=== PATIENT | female | born 1990 | race Caucasian/White ===

== ENCOUNTER 2023-07-19 21:32 | Outpatient (CLI) | payer OTHER, SELFPAY ==
[2023-07-19] VITALS (21 sets, daily range): BP systolic 135; BP diastolic 76; PULSE 66–90; TEMP 36.8; O2SAT 97–99
--- NOTE | 2023-07-19 22:20 | CRLHL7_ITS ---
For Patients: As a result of the Century Cures Act, medical imaging exams and procedure reports are released immediately into your electronic medical record. You may view this report before your referring provider. If you have questions, please contact your health care provider. INDICATION: Bleeding at 30 weeks, cervical length. COMPARISON: None available. TECHNIQUE: Ultrasound OB pelvis with real time laruent scale imaging and color Doppler analysis. FINDINGS: Sonographic imaging demonstrates a single living intrauterine gestation. The fetus has a regular cardiac rate of 155 beats per minute. The fetus has a transverse orientation with the head to the maternal right. Amniotic fluid volume appears normal with deepest pocket measuring 4.1 cm. The placenta lies anteriorly without evidence of placenta previa or abruption. The placental edge is located 4.4 cm from the internal cervical os. The cervix is closed and measures 3.8 cm in length. No funneling of the internal cervical os. IMPRESSION: 1. Single living intrauterine gestation in transverse position with heart rate 155 beats per minute. 2. Anterior placenta without evidence of previa. 3. The cervix is closed and measures 3.8 cm in length. Dictated by Brittney Bearden MD @ 07/19/2023 11:51:03 PM (Electronically Signed)
--- NOTE | 2023-07-19 23:42 | PC.OBNST ---
NST Note NST Note Start: 07/19/23 21:48 Freq: ONCE Status: Active Protocol: Document 07/19/23 23:40 DEBBY (Rec: 07/19/23 23:42 [id number] [id number]) NST Note 2 Para (# of births) 0 EDC 09/27/23 Gestational Age In Weeks & Days 30 Weeks & 0 Days Patient Presented with Complaint(s) of Vaginal bleeding Reactive Yes Appropriate for Gestational Age Yes RN Sun Sierra RN Date 07/19/23 Reactive Yes Appropriate for Gestational Age Yes AUSTIN Pettit RN Date 07/19/23 OB NST charge Yes Complete NST Note via Write Note Yes The provider's electronic signature indicates the NST is reactive/appropriate for gestational age. *Note to provider: If an addendum is required, open the patient's chart and click on the note under the Nurse/Allied Health tab.
== END 2023-07-19 23:37 | disposition home or self-care (01) ==
LOC: OB OUT 21:32 → OB 21:33
PROVIDERS: PCP Physician Assistant; Visit Provider Family Medicine
DX: O46.93 Antepartum hemorrhage, unspecified, third trimester (principal); Z3A.30 30 weeks gestation of pregnancy
CPT/HCPCS: 59025; 76815; G0463

== ENCOUNTER 2023-09-10 13:44 | Inpatient (IN) | payer OTHER, SELFPAY ==
[2023-09-10] VITALS (18 sets, daily range): BP systolic 122–156; BP diastolic 67–97; PULSE 55–103; RESP 18; TEMP 36.6–37; O2SAT 97–99; BMI 34.3
[2023-09-10 15:09] LABS: Alanine Aminotransferase* 11 U/L (4-35); Aspartate Amino Transferase* 16 U/L (12-35); Blood Urea Nitrogen* 8 mg/dL (5-24); Creatinine* 0.6 mg/dL (0.5-1.5); Estimated Glomerular Filt Rate 122 ml/min
[2023-09-10 15:20] LABS: Basophils Absolute Auto 0.03 K/uL (0.00-0.30); Basophils Percent Auto 0.3 % (0.0-3.0); Eosinophils Absolute Auto 0.01 K/uL (0.00-0.50); Eosinophils Percent Auto 0.1 % (0.0-7.0); Hematocrit 34.4 % (33.0-51.0); Hemoglobin* 11.3 gm/dL (12.0-16.0); Immature Granulocytes Abs Auto 0.05 K/uL (0.00-0.30); Immature Granulocytes Pct Auto 0.5 %; Lymphocytes Absolute Auto 2.23 K/uL (0.90-2.90); Lymphocytes Percent Auto 21.7 % (20-44); Mean Corpuscular HGB Conc 33 gm/dL (32-36); Mean Corpuscular Hemoglobin 28 pg (26-34); Mean Corpuscular Volume 85 fL (80-100); Monocytes Percent Auto 5.9 % (0.0-11.0); Neutrophils Absolute Auto 7.33 K/uL (1.7-7.0); Neutrophils Percent Auto 71.5 % (42.0-72.0); Platelet Count* 166 K/uL (140-440); RDW Coefficient of Variation % 14.4 % (11.5-15.5); Red Blood Count 4.06 m/uL (4.00-5.20); White Blood Count* 10.26 K/uL (4.50-11.00)
[2023-09-10 15:22] LABS: Slide Review Reflex No
[2023-09-10] MEDS: miSOPROStoL 25 MCG/0.25 TABLET VAGINAL (15:37)
[2023-09-10 16:47] LABS: Total Protein Urine 11 mg/dL
[2023-09-10 16:48] LABS: Protein Creatinine Ratio Urine 0.26 (0-0.19)
--- NOTE | 2023-09-10 18:46 | PM.OBHPLI ---
OB - H&P: HPI Labor/Induction History of Present Illness Date Seen: 09/10/23 Chief Complaint: The patient is a 33 year old 2 para 0 at 37+4 weeks gestation by 7 week US, who presents with IOL for gestational HTN. Chief complaint: Gestational Hypertension IOL Indications for induction: induced hypertension Narrative: Carrie Pool is a 33 year old at 37+4 weeks gestation by 7 week US who has had elevated BP readings both in clinic and at home over the last 2 weeks. She had a headache today, but relieved with tylenol. No increased swelling today. No abdominal pain or vision changes. Preeclampsia labs have all been normal. She had a reassuring BPP of 8/8 on 09/07 History of Present Dating criteria: based on 1st trimester US only care: good care Ultrasounds: normal 1st trimester US and normal mid trimester US complications: gestational hypertension Medical complications: none Labs Blood type: A (-) negative Rubella: immune RPR/VDLR: nonreactive GBS status: negative HBsAG: negative Review of Systems Status of ROS: Reports: 10 or more systems reviewed and unremarkable except as noted in History and below Meds Home Medications and Allergies Home Medications ?Medication ?Instructions ?Recorded ?Confirmed ?Type Fiber 07/19/23 History vitamin 07/19/23 History nettle tea 07/19/23 History red raspberry leaf tea 07/19/23 History Allergies Allergy/AdvReac Type Severity Reaction Status Date / Time No Known Drug Allergies Allergy Verified 12/27/21 13:05 OB - H&P: Exam Physical Exam: Vital signs: Temp Pulse BP Pulse Ox 97.8 F 67 134/92 H 97 09/10/23 17:49 09/10/23 17:45 09/10/23 17:45 09/10/23 17:45 Constitutional: Constitutional: no acute distress Routine HEENT Exam: Head: Present atraumatic Eye: Present PERRL ENT: Present mucous membranes moist Routine Neck Exam: Neck: Present full ROM Routine Respiratory Exam: Respiratory: Present CTA bilaterally Routine Cardiovascular Exam: Cardiovascular: RRR Detailed Labor and Delivery Exam: Dilation (cm): 3 Effacement (%): 70 Cervix position: mid Consistency: soft Cervical ripeness score: 9 Fetus (Single): Station: -1 Amniotic Membrane Status: intact Heart Rate Baseline: 150 Monitor Accelerations: Present Monitor Decelerations: None [facility] Variability: Moderate (6-25) Routine Back/Spine/Pelvis Exam: Back/Spine: full ROM Routine Skin Exam: Present intact Routine Neurological Exam: Present alert, oriented X3 and CN II-XII intact Routine Psychiatric Exam: Present normal affect and normal thought process OB - Results Labs Labs: Short CBC 09/10/23 Range/Units 14:40 WBC 10.26 (4.50-11.00) K/uL Hgb 11.3 L (12.0-16.0) gm/dL Hct 34.4 (33.0-51.0) % Plt Count 166 (140-440) K/uL BMP 09/10/23 14:40 BUN 8 Creatinine 0.6 Liver Function 09/10/23 Range/Units 14:40 AST 16 (12-35) U/L ALT 11 (4-35) U/L OB - Problem Based A/P Additional Plan (1) Term : Status: Acute (2) Gestational HTN: Status: Acute Plan Preeclampsia labs are negative/normal, blood pressures elevated, but below threshold for treatment. Will plan IOL, has had 1 dose cytotec and cervix is now favorable, so recommend going to pitocin. Patient desires water and we will accommodate as long as BP is under severe range and no preeclampsia signs/symptoms. Delivery/Labor/Induction Plan Plan: induction Induction method: per pitocin protocol
[2023-09-10] MEDS: MORPHINE 10 MG/ML inj IM (21:38)
[2023-09-10] MEDS: hydrOXYzine pamoate 25 MG CAPSULE 100 MG PO (21:38)
[2023-09-10] MEDS: OXYTOCIN 30 unit/500 ML in NS 30 UNIT/500 ML BAG IVPB (21:49)
[2023-09-10] MEDS: LACTATED RINGERS 1000 ML 1,000 ML 124 ML IV (22:17)
[2023-09-11] VITALS (65 sets, daily range): BP systolic 120–167; BP diastolic 67–100; PULSE 55–114; RESP 16–20; TEMP 36.4–37.3; O2SAT 86–100
--- NOTE | 2023-09-11 06:51 | P.OBPN_ITS ---
Subjective Date Seen: 09/11/23 Narrative: Carrie is a at 37+5 admitted yesterday afternoon for IOL for gestational HTN. She had 1 dose of cytotec and because of a monzon score of 9, was started on pitocin. She had SROM of clear fluid at 0340 this morning and rapidly dilated to 8.5 cm. She is now in the birthing tub. Due to difficulty getting an adequate tracing, pitocin has been turned off. She continues to contract every 3-4 minutes and is using nitrous for analgesia. Blood pressures remain intermitt ently high, but below threshold for treatment. Objective Vital Signs: Last Vital Signs Temp 97.6 F 09/11/23 05:19 Pulse 93 09/11/23 05:48 Resp 18 09/11/23 05:19 BP 139/100 H 09/11/23 05:48 Pulse Ox 97 09/10/23 17:45 Pelvic Exam Dilation (cm): 8.5 Effacement (%): 90 Station: +2 Contractions Monitor mode: External Contraction Frequency: 3-4 Contraction pattern: Regular Contraction intensity: Strong/Firm Assessment Assessment: active labor Station: +2 Status: Category l Heart Rate Baseline: 150 Correction Variability: Moderate (6-25) Monitor Accelerations: Present Monitor Decelerations: None Plan Plan: continue expectant management. Anticipate .
[2023-09-11] MEDS: fentaNYL 100 MCG/2 ML inj IVP ×2 (07:52→10:37)
--- NOTE | 2023-09-11 08:19 | PM.OBPNL ---
Subjective Date Seen: 09/11/23 Narrative: Carrie was feeling urge to push at peak of contractions, however cervical check showed she is only 6 cm. Due to increased intensity of contractions a dose of IV fentanyl given. Contractions have spaced out since pitocin turned off around 6 am. Objective Vital Signs: Last Vital Signs Temp 99.1 F 09/11/23 06:44 Pulse 67 09/11/23 08:13 Resp 18 09/11/23 06:44 BP 146/68 H 09/11/23 08:13 Pulse Ox 94 09/11/23 08:18 Pelvic Exam Dilation (cm): 6 Effacement (%): 100 Station: -1 Contractions Monitor mode: External Contraction pattern: Regular Contraction intensity: Strong/Firm Assessment Assessment: active labor Station: -1 Status: Category l Heart Rate Baseline: 150 [employer] Variability: Moderate (6-25) Monitor Accelerations: Absent Monitor Decelerations: None Plan Plan: If patient is not making adequate progress, will restart pitocin. Patient reminded of pain management options. anticipate .
[2023-09-11] MEDS: LACTATED RINGERS 1000 ML 1,000 ML 125 ML IV (09:31)
--- NOTE | 2023-09-11 11:30 | P.OBPN_ITS ---
Subjective Date Seen: 09/11/23 Narrative: Patient is now more uncomfortable with more frequent and stronger contractions as pitocin is increased. Has been able to manage pain so far with IV fentanyl and nitrous. Objective Vital Signs: Last Vital Signs Temp 98.2 F 09/11/23 11:17 Pulse 71 09/11/23 11:10 Resp 18 09/11/23 06:44 BP 136/81 09/11/23 11:10 Pulse Ox 97 09/11/23 10:13 Pelvic Exam Dilation (cm): 7 Effacement (%): 100 Station: 0 Contractions Monitor mode: External Contraction Frequency: 2-3 Contraction pattern: Regular Contraction intensity: Strong/Firm Pitocin Rate (mU/min): 6 Assessment Assessment: active labor Station: -1 Status: Category l Heart Rate Baseline: 150 [employer] Variability: Moderate (6-25) Monitor Accelerations: Absent Monitor Decelerations: None Plan Plan: Continue pitocin per protocol. Anticipate .
[2023-09-11] MEDS: LIDOCAINE 1 % PF 30 ML INJECTION (13:45)
[2023-09-11] MEDS: IBUPROFEN 600 MG TABLET PO ×2 (14:10→23:24)
--- NOTE | 2023-09-11 14:12 | W.PM.VAGDEL1 ---
Procedure Delivery date: 09/11/23 Procedure Done: Global Events: Gestational Hypertension Intrapartal Events: None Delivery monitor: external FHT and internal uterine Route of delivery: Laceration description: Vaginal - 2nd Degree Delivery repair: Vicryl Estimated blood loss (mL): 225 Anesthesia type: None Disposition: floor Narrative: The patient is a 33 year-old admitted on 09/10/2023 at 37 Weeks, 4 Days gestation for IOL for gestaional HTN.? Cervical exam on admission was 3 cm/50 % effaced/-2 station with membranes intact in vertex presentation.? Contractions were absent.? heart rate demonstrated baseline 150 bpm with moderate variability, + accelerations, - decelerations; a category 1 tracing.? SROM occurred at 0340 with clear fluid. ? Labor Analgesia:? fentanyl and nitrous ? Pitocin:? yes ? Labor onset:? 0915 ? Complete:? 1243 ? Pushing:? 1243 ? heart tones during second stage were category 2. ? Patient entered the tub for delivery at 1243. At 1321 a viable female infant delivered in vertex OA presentation over intact perineum via spontaneous vaginal delivery.? Infant was placed on maternal abdomen.? Cord was clamped and cut after a 30-60 second delay.? Nose and mouth were bulb suctioned.? Infant weight pending.? 7 at 1 minute and 9 at 5 minutes.? Shoulder dystocia: no.? Nuchal cord: yes x1. ? Placenta delivered spontaneously and complete at 1331 with a 3 vessel cord. ? Mother and were stable after delivery. ? Lacerations:? 2nd degree with bilateral labial extension, repaired with 3-0 vicryl suture. ? Blood loss: 225 mL. Blood loss measurement type: EBL ? Sponge and needles counts are correct.
[2023-09-11] MEDS: OXYTOCIN 30 unit/500 ML in NS 30 UNIT/500 ML BAG 300 UNIT IVPB (14:15)
[2023-09-11] MEDS: ACETAMINOPHEN 500 MG TABLET 1000 MG PO (17:09)
[2023-09-12 01:03] VITALS: BP 134/89; PULSE 93; RESP 18; TEMP 36.6
[2023-09-12 03:36] VITALS: BP 133/96; PULSE 93; RESP 18; TEMP 37
[2023-09-12] MEDS: ACETAMINOPHEN 500 MG TABLET 1000 MG PO ×2 (03:36→20:05)
[2023-09-12 06:29] LABS: Hemoglobin* 9.1 gm/dL (12.0-16.0)
[2023-09-12 07:43] VITALS: BP 128/88; PULSE 74; RESP 19; TEMP 36.4; O2SAT 96
[2023-09-12] MEDS: IBUPROFEN 600 MG TABLET PO ×3 (07:45→21:54)
[2023-09-12] MEDS: DOCUSATE SODIUM 100 MG CAPSULE PO (07:46)
--- NOTE | 2023-09-12 07:52 | PM.OBPNVD1 ---
OB - PN:Subj Subjective Date Seen: 09/12/23 Narrative: Patient seen today on PP day 1. Doing well. Pain under control with ibuprofen. Lochia decreasing. Ambulating. Tolerating diet. Normal urination. going well. Baby doing well. Blood pressure overnight in 150s with pain, returned to 120-130s. Denies headache or RUQ pain. Swelling has resolved. OB - PN: Obj Exam Physical Exam: Vital signs: Temp Pulse Resp BP Pulse Ox O2 Del Method 97.6 F 74 19 128/88 96 Room Air 09/12/23 07:43 09/12/23 07:43 09/12/23 07:43 09/12/23 07:43 09/12/23 07:43 09/12/23 07:43 Narrative: Gen: NAD CV: RRR, normal S1,S2, no murmurs Resp: normal rate and effort, clear to auscultation Ext: Warm, dry, no edema b/l. Calves non-tender to palpation. Mood: Appropriate OB - PN: Obj Data Labs Labs: Laboratory Results - last 24 hr 09/10/23 09/12/23 14:40 06:22 Hgb 9.1 L Antibody Identification Anti-D OB - PN: A/P Delivery Assessment and Plan (1) Term : Status: Inactive (2) Gestational HTN: Problem details: Blood pressure 120-140s, no pre-E symptoms, if blood pressures remain elevated recommend repeat pre-E labs Status: Acute Plan Comments: PPD#1 s/p uncomplicated , doing well. Plan: -- Continue current cares. -- Encourage ambulation. -- Take Vitamins while . -- Iron sulfate due to anemia (since Hgb < 10) -- Colace for constipation prophylaxis. -- Anticipate discharge to home tomorrow.
[2023-09-12 12:41] VITALS: BP 129/81; PULSE 70; RESP 19; TEMP 36.7; O2SAT 97
[2023-09-12 15:10] LABS: Rapid Plasma Reagin (RPR) Non Reactive (Non Reactive)
[2023-09-12 15:46] VITALS: BP 132/89; PULSE 70; RESP 17; TEMP 36.4; O2SAT 98
[2023-09-12 20:00] VITALS: BP 124/73; PULSE 75; RESP 18; TEMP 36.8; O2SAT 96
[2023-09-13] VITALS (7 sets, daily range): BP systolic 124–151; BP diastolic 75–91; PULSE 75–83; RESP 16–18; TEMP 36.6–36.8; O2SAT 96–97
[2023-09-13 01:48] LABS: Hematocrit 27.7 % (33.0-51.0); Hemoglobin* 9.1 gm/dL (12.0-16.0); Mean Corpuscular HGB Conc 33 gm/dL (32-36); Mean Corpuscular Hemoglobin 28 pg (26-34); Mean Corpuscular Volume 87 fL (80-100); Platelet Count* 138 K/uL (140-440); White Blood Count* 12.41 K/uL (4.50-11.00)
[2023-09-13 01:56] LABS: Slide Review Reflex No
[2023-09-13 02:03] LABS: Creatinine* 0.6 mg/dL (0.5-1.5); Estimated Glomerular Filt Rate 122 ml/min
[2023-09-13 02:04] LABS: Alanine Aminotransferase* 13 U/L (4-35); Aspartate Amino Transferase* 26 U/L (12-35); Blood Urea Nitrogen* 8 mg/dL (5-24)
[2023-09-13] MEDS: IBUPROFEN 600 MG TABLET PO (03:56)
[2023-09-13] MEDS: NIFEdipine 30 MG TAB.ER.24 PO ×2 (05:15→11:30)
--- NOTE | 2023-09-13 08:20 | PM.OBDSVD1 ---
DS: Providers Provider Date Seen: 09/13/23 Date of admission: 09/10/23 13:44 Primary care physician: Arielle Porras PA-C Admitting Clinician: Caira Gaona MD Attending Physician on discharge: Ciara Gaona MD DS: Diagnosis Discharge Diagnosis (1) Gestational HTN: Status: Acute Problem details: H/o gHTN, no pre-E, PP BPs 120-150s, started on 30mg nifedipine. Repeat labs nl (2) Vaginal delivery: Status: Acute Exam Narrative: Exam Narrative: Gen: No acute distress CV: Regular rate and rhythm, normal S1,S2, no murmurs Resp: Normal rate and effort, clear to auscultation bilaterally Abd: Soft, uterus firm and nontender at umbilicus Ext: Warm, dry, 2+ pedal pulses, no edema bilaterally. Calves non-tender to palpation. Const: Vital Signs, click to edit/add: Vital Signs - 24 hr 09/12/23 12:41 09/12/23 15:46 09/12/23 20:00 Temperature 98.0 F 97.5 F L 98.2 F Pulse Rate [Right Pulse Oximeter] 70 70 75 Respiratory Rate 19 17 18 Blood Pressure [Le ft Arm] 129/81 132/89 124/73 Pulse Oximetry 97 98 96 Oxygen Delivery Me thod Room Air Room Air Room Air 09/13/23 01:00 09/13/23 03:54 09/13/23 04:30 Temperature 98.2 F 97.8 F Pulse Rate [Right Pulse Oximeter] 75 75 Respiratory Rate 18 18 Blood Pressure [Le ft Arm] 151/88 H 145/80 H Pulse Oximetry 96 96 Oxygen Delivery Me thod Room Air Room Air 09/13/23 05:00 09/13/23 06:57 Temperature 97.8 F Pulse Rate [Right Pulse Oximeter] 75 75 Respiratory Rate 18 Blood Pressure [Le ft Arm] 148/91 H 124/75 Pulse Oximetry 96 Oxygen Delivery Me thod Room Air OB - DS: Summary Hospital Course Hospital Course: The patient is a 33 year old G 2 P 1 at 37.5 weeks gestation that was admitted to the Center on 09/10/23 for IOL for gestational hypertension. She had an uncomplicated vaginal delivery, waterbirth. She delivered a viable female infant. She is breast feeding. the patient has done well. Blood pressures spiked at 150s systolic, started on oral nifedipine 30mg once daily. She did have anemia of 9.1 and should continue iron supplementation at this time. Peripartum Data Infant delivery method: Vaginal Laceration description: Perineal - 2nd Degree [place] Gender: Female Status at Discharge Functional status at discharge: independent ambulation Overall status at discharge: patient is progressing back to baseline Time Spent with Patient Time attestation: Total time spent providing and/or coordinating discharge services: Discharge Plan Discharge Disposition: Home, Self-Care Date of Admission: 09/10/23 13:44 Primary Care Provider: Arielle Porras Condition: Stable Anticipated Discharge Date/Time: 09/13/23 08:25 Discharge Medications: New nifedipine 30 mg Tablet Extended Release 24hr 30 mg PO DAILY Qty: 30 0RF Continued red raspberry leaf tea nettle tea vitamin Discontinued Fiber Discharge Orders: Discharge Order (Routine); Ordered 09/13/23 Ordered By: Joelle Marquis Patient Education: OB High Blood Pressure DC, OB [place] Care, OB Vaginal/Breast Feeding Additional Instructions: Follow-up with Dr Gaona early next week (09/16 at 10:05AM) for blood pressure recheck. Check blood pressures 1-2x daily. If blood pressure remains above 130/80 at home, please contact clinic as may need a dose increase of the nifedipine. You should monitor for headache, vision changes, right upper abdominal pain and arm/leg swelling as you can still develop preeclampsia. If you develop these symptoms, you should call center as you may need to be readmitted to the hospital. Activity Level: Activity as Tolerated Discharge Diet: Regular Follow Up Appointments: Arielle Porras PA-C [Primary Care Provider] - Forms: Vendor Registry Info Instructions DS:Data Additional Comments Additional comments: - GHtn: continue nifedipine 30mg once daily. Check BP at home and follow-up on 09/16 at 10:05AM with Dr Gaona. - Pelvic rest for 6 weeks (no intercourse, tampons or douching), or until one week after vaginal bleeding stops. - Daily activities for the first week should be limited to taking care of patient and her baby, and only as tolerated. - Call MD if fever > 100.4 degrees, bleeding more than 1 pad / hour, foul-smelling discharge, passage of golf-ball sized blood clots, or worsening of pain not controlled by medications. - Counseled on signs of post- depression
[2023-09-13] MEDS: ACETAMINOPHEN 500 MG TABLET 1000 MG PO (08:54)
[2023-09-13] MEDS: DOCUSATE SODIUM 100 MG CAPSULE PO (08:54)
== END 2023-09-13 11:45 | disposition home or self-care (01) | DRG 807 ==
PROVIDERS: Student in an Organized Health Care Education/Training Program; Admitting Provider Family Medicine; PCP Physician Assistant; Visit Provider Family Medicine
DX: O13.4 Gestational [pregnancy-induced] hypertension without significant proteinuria, complicating childbirth (principal); Z37.0 Single live birth; O70.1 Second degree perineal laceration during delivery; O90.81 Anemia of the puerperium; D64.9 Anemia, unspecified; Z3A.37 37 weeks gestation of pregnancy; O26.893 Other specified pregnancy related conditions, third trimester; Z67.11 Type A blood, Rh negative
CPT/HCPCS: 36415; 59200; 82565; 82570; 84156; 84450; 84460; 84520; 85018; 85025; 85027; 86592; 86850; 86870; 86880; 86900; 86901; A9270; J2001; J2270; J3010; J7120